=== PATIENT | male | born 1985 | race Two or more races ===

== ENCOUNTER 2022-11-11 14:37 | Emergency (ER) | payer OTHER ==
[~2022-11-11] VITALS: Ht 172.7 cm; Wt 92.8 kg
[2022-11-11 14:48] VITALS: BP 119/71
[2022-11-11] MEDS ORDERED: IBUP800T27 PO (16:12)
[2022-11-11] MEDS ORDERED: METH750T22 PO (16:12)
== END 2022-11-11 16:33 | disposition home or self-care (01) ==
LOC: ER 14:37
DX: S20.212A Contusion of left front wall of thorax, initial encounter (principal); V43.52XA Car driver injured in collision with other type car in traffic accident, initial encounter; Y93.89 Activity, other specified; Y92.488 Other paved roadways as the place of occurrence of the external cause; Y99.8 Other external cause status
CPT/HCPCS: 71101